=== PATIENT | female | born 1990 | race Caucasian/White ===

== ENCOUNTER 2020-05-04 11:16 | Outpatient (REF) | payer MEDICAID, SELFPAY ==
[2020-05-04 13:00] LABS: MANUAL DIFF FLAG NO
[2020-05-04 13:04] LABS: Basophils Percent Auto 0.3 % (0-2); Eosinophils Absolute Auto 0.3 X10*3/uL (0.0-0.4); Eosinophils Percent Auto 3.2 % (0-4); Hematocrit 48.3 % (37-47); Hemoglobin 15.7 g/dl (12.0-16.0); Imm Gran Abs Auto 0.02 X10*3/uL (0.00-0.03); Imm Gran Pct Auto 0.2 % (0.0-0.4); Lymphocytes Absolute Auto 2.8 X10*3/uL (1.2-4.9); Lymphocytes Percent Auto 30.6 % (20-40); Mean Corpuscular HGB Conc 32.5 g/dl (31.0-35.0); Mean Corpuscular Hemoglobin 27.2 pg (27.0-33.0); Mean Corpuscular Volume 83.7 fL (80-98); Mean Platelet Volume 10.4 fL (9.4-12.3); Monocytes Absolute Auto 0.5 X10*3/uL (0.1-1.2); Monocytes Percent Auto 5.4 % (2-11); Neutrophils Absolute Auto 5.6 X10*3/uL (2.0-8.3); Neutrophils Percent Auto 60.3 % (45-73); Platelet Count 330 X10*3/uL (160-400); Red Blood Count 5.77 X10*6/uL (4.20-5.50); Red Cell Distribution Width 13.1 % (11.0-16.0); White Blood Count 9.3 X10*3/uL (4.8-10.8)
[2020-05-04 13:36] LABS: Alanine Aminotransferase 29 U/L (0-31); Albumin Level 4.6 g/dL (3.5-5.0); Alkaline Phosphatase 73 U/L (39-117); Anion Gap 15 (12-20); Aspartate Amino Transferase 21 U/L (5-31); Bilirubin Total 0.6 mg/dL (0.0-1.0); Blood Urea Nitrogen 10 mg/dL (9-16); Calcium 8.9 mg/dL (8.4-10.2); Carbon Dioxide 26 mmol/L (22-29); Chloride 101 mmol/L (96-108); Cholesterol 177 mg/dL; Estimated Glomerular Filt Rate > 60; Glucose Random 82 mg/dL (60-115); HDL Cholesterol 39 mg/dL; LDL Cholesterol Calculated 120 mg/dl; Potassium 4.6 mmol/l (3.3-5.1); Rheumatoid Factor < 15.0 IU/mL (<15.0); Sodium 137 mmol/L (135-145); Total Protein 7.7 g/dL (6.5-8.0); Triglycerides 94 mg/dL
[2020-05-04 13:46] LABS: Erythrocyte Sedimentation Rate 8 MM/HR (0-20)
[2020-05-04 13:56] LABS: Thyroid Stimulating Hormone 0.78 mIU/mL (0.32-4.0)
[2020-05-06 14:01] LABS: Anti Nuclear Antibody Screen NEGATIVE (NEGATIVE)
== END 2020-05-04 11:17 | disposition home or self-care (01) ==
LOC: HO.LAB 11:16
PROVIDERS: PCP Internal Medicine; Visit Provider Internal Medicine
DX: E78.2 Mixed hyperlipidemia (principal); F31.5 Bipolar disorder, current episode depressed, severe, with psychotic features; F43.12 Post-traumatic stress disorder, chronic; L24.7 Irritant contact dermatitis due to plants, except food
CPT/HCPCS: 36415; 80053; 80061; 84443; 85025; 85652; 86038; 86039; 86431

== ENCOUNTER 2020-06-09 14:21 | Outpatient (REF) | payer MEDICAID, SELFPAY | END 2020-06-09 14:22 | disposition home or self-care (01) | LOC: HO.LAB 14:21 | PROVIDERS: Visit Provider Internal Medicine | DX: Z20.828 Contact with and (suspected) exposure to other viral communicable diseases (principal) | CPT/HCPCS: C9803; U0003 ==

== ENCOUNTER 2020-07-20 16:04 | Outpatient (REF) | payer MEDICAID, SELFPAY | END 2020-07-20 16:05 | disposition home or self-care (01) | LOC: HO.LAB 16:04 | PROVIDERS: Visit Provider Internal Medicine | DX: Z20.822 Contact with and (suspected) exposure to COVID-19 (principal) | CPT/HCPCS: 36415; C9803; U0003 ==

== ENCOUNTER 2020-09-29 22:01 | Emergency (ER) | payer MEDICAID, SELFPAY ==
[2020-09-29 22:09] VITALS: BP 133/68; PULSE 88; RESP 18; TEMP 37.1; O2SAT 99; BMI 27.4
[2020-09-29 23:28] VITALS: BP 121/75; PULSE 78; RESP 16; TEMP 36.6; O2SAT 98
--- NOTE | 2020-09-30 00:21 | ED_ITS ---
HPI - General Adult General Chief complaint: General Medical Stated complaint: weakness Time Seen by Provider: 09/30/20 00:21 Source: patient Mode of arrival: ambulatory Limitations: no limitations History of Present Illness HPI narrative: Patient with chronic pain seen PCP supposed to see [facility] coming here for the pain all over the back although the hands multiple complaints with increased anxiety and stress no fever no chills no joint swelling no rash Related Data Previous Rx's Medication Instructions Recorded cyclobenzaprine 10 mg PO Q8H #20 tab 09/30/20 prednisone 40 mg PO DAILY #10 tab 09/30/20 tramadol 50 mg PO Q6H PRN #20 tab 09/30/20 Allergies Allergy/AdvReac Type Severity Reaction Status Date / Time No Known Allergies Allergy Unverified 03/18/20 17:10 [No Known Allergies*] Review of Systems Review of Systems: Yes all other systems are reviewed and are negative [facility] Past Medical History Medical History Meningitis Social History Social History Advance Directives: No Physical Exam Vital Signs: Vital Signs: Last Vital Signs Temp 98 F 09/29/20 23:28 Pulse 78 09/29/20 23:28 Resp 16 09/29/20 23:28 BP 121/75 09/29/20 23:28 Pulse Ox 98 09/29/20 23:28 Body Mass Index 27.4 Const: General: no acute distress and well developed Orientation/consciousness: patient oriented x3 HENMT: Head: Yes normocephalic and Yes atraumatic Eyes: General: appearance normal, both eyes and all related structures Neck: Neck: Yes normal visual inspection, Yes full ROM and No midline defo rmity Chest: Chest palpation & inspection: normal palpation of entire chest wall Resp: Effort & Inspection: normal respiratory effort Auscultation: clear to auscultation bilaterally Cardio: Rate: regular rate Rhythm: regular rhythm Heart sounds: S1 normal heart sound present and S2 normal heart sound present Peripheral pulses: Peripheral pulses 2+ throughout GI: Inspection: Yes normal to inspection Palpation (GI): Soft to palpation and nontender : General: Yes no CVA tenderness Back/Spine/Pelvis: Other: Diffuse tenderness all over the back specially upper back with multiple trigger point tenderness Back: no CVA tenderness Thoracic/Lumbar Spine: paraspinal muscle tenderness and thoraco-lumbar spasm Skin: General skin exam: no rashes or lesions noted Neuro: General: patient oriented x3, gait normal, no focal motor deficits and CN's II-XI intact bilaterally Extrem: General: Yes normal to inspection, Yes no calf tenderness and No pedal edema Medical Decision Making MDM Narrative Medical decision making narrative: Patient with increased anxiety diffuse upper back pain no synovial thickening of any joint symptoms likely from fibromyalgia with trigger point tenderness. Will discharge patient home on tramadol Flexeril and short course of prednisone advised to follow-up with [facility] Discharge Plan Discharge Clinical Impression: Fibromyalgia Patient Disposition: Home, Self-Care Instructions: Fibromyalgia (ED) Additional Instructions: Relax and rest at home. Take medication as advised for pain and muscle relaxation. Follow with [facility] as planned Prescriptions: New cyclobenzaprine 10 mg tablet 10 mg PO Q8H Qty: 20 RF: 0 prednisone 20 mg tablet 40 mg PO DAILY Qty: 10 RF: 0 tramadol 50 mg tablet 50 mg PO Q6H PRN (Reason: pain) Qty: 20 RF: 0 Stand Alone Forms: Work/School Release Interventions: ED Discharge Assessment Last Done: 09/30/20 01:00 Discharge Date/Time: 09/30/20 01:01
[2020-09-30] MEDS: Cyclobenzaprine HCl 10 MG TABLET PO (00:37)
[2020-09-30] MEDS: traMADoL HCL 50 MG TABLET PO (00:38)
== END 2020-09-30 01:01 | disposition home or self-care (01) ==
PROVIDERS: Emergency Provider Internal Medicine; PCP Internal Medicine
DX: M79.7 Fibromyalgia (principal)
CPT/HCPCS: 99283

== ENCOUNTER 2020-11-05 16:12 | Emergency (ER) | payer MEDICAID, SELFPAY ==
[2020-11-05 16:14] VITALS: BP 108/68; PULSE 104; RESP 14; TEMP 37.3; O2SAT 96; BMI 32.0
--- NOTE | 2020-11-05 17:18 | ED_ITS ---
HPI - General Adult General Chief complaint: Neck Pain/Injury Stated complaint: Sore Throat Time Seen by Provider: 11/05/20 17:11 History of Present Illness HPI narrative: Patient complains of sore throat similar to prior sore throat along with fevers coming and going, it hurts to swallow but she is able to swallow she has no cough no runny nose Related Data Previous Rx's Medication Instructions Recorded cyclobenzaprine 10 mg PO Q8H #20 tab 09/30/20 prednisone 40 mg PO DAILY #10 tab 09/30/20 tramadol 50 mg PO Q6H PRN #20 tab 09/30/20 acetaminophen 1,000 mg PO Q6H PRN #30 tab 11/05/20 ibuprofen 600 mg PO Q6H PRN #20 tab 11/05/20 oxycodone 5 mg PO Q6H PRN #10 tab 11/05/20 penicillin V potassium 500 mg PO TID 10 Days #30 tab 11/05/20 Allergies Allergy/AdvReac Type Severity Reaction Status Date / Time No Known Allergies Allergy Verified 11/05/20 17:10 [No Known Allergies*] Review of Systems Review of Systems: Positive for sore throat and fever Negatives are no headache no dizziness no weakness no fainting no difficulty swallowing but there is pain on swallowing, no shortness of breath no chest pain no abdominal pain no nausea vomiting or diarrhea no rash Yes all other systems are reviewed and are negative [facility] Past Medical History Source: nursing notes reviewed Medical History Meningitis Social History Social History Advance Directives: No Advance Directives Information Provided: No Patient : No Physical Exam Vital Signs: Vital Signs: Last Vital Signs Temp 99.2 F 11/05/20 16:14 Pulse 104 H 11/05/20 16:14 Resp 14 11/05/20 16:14 BP 108/68 11/05/20 16:14 Pulse Ox 96 11/05/20 16:14 Body Mass Index 32.0 General appearance is no acute distress, cooperative and O x3 The ears are clear with normal tympanic membranes and normal canals Eyes no discharge no redness The pharynx shows symmetric we enlarged tonsils with exudate, the pharynx is red, the voice is normal there is no drooling there is no trismus, uvula is midline Mucous membranes are moist Extremities full range of motion x4 Skin no rashes The neck was supple there was some palpable cervical adenopathy The chest is clear to auscultation bilateral with full symmetric breath sounds The heart no murmur Abdomen is soft nontender Course Course Course Narrative: Patient is able to tolerate p.o. fluids and was treated with a 1 time dose of steroid and penicillin was started Discharge Plan Discharge Clinical Impression: Acute streptococcal pharyngitis Patient Disposition: Home, Self-Care Additional Instructions: We are treating for strep throat with penicillin We gave 1 dose of Decadron which is a steroid which sometimes helps reduce inflammation and decrease the pain Drink plenty of fluids, breathing steam sometimes helps relieve throat pain Return any time for any worse condition or any concerns Prescriptions: New penicillin V potassium 500 mg tablet 500 mg PO TID 10 Days Qty: 30 RF: 0 acetaminophen 500 mg tablet 1,000 mg PO Q6H PRN (Reason: fever or pain) Qty: 30 RF: 0 ibuprofen 600 mg tablet 600 mg PO Q6H PRN (Reason: fever or pain) Qty: 20 RF: 0 oxycodone 5 mg tablet 5 mg PO Q6H PRN (Reason: pain) Qty: 10 RF: 0 No Action cyclobenzaprine 10 mg tablet 10 mg PO Q8H Qty: 20 RF: 0 prednisone 20 mg tablet 40 mg PO DAILY Qty: 10 RF: 0 tramadol 50 mg tablet 50 mg PO Q6H PRN (Reason: pain) Qty: 20 RF: 0 Stand Alone Forms: Work/School Release
[2020-11-05] MEDS: Ketorolac Tromethamine 30 MG/ML VIAL IM (17:29)
[2020-11-05] MEDS: dexAMETHasone 2 MG TABLET 10 MG PO (17:30)
[2020-11-05] MEDS: Penicillin V Potassium 250 MG TABLET 500 MG PO (17:30)
[2020-11-05] MEDS: Acetaminophen 325 MG TABLET 975 MG PO (17:30)
== END 2020-11-05 17:48 | disposition home or self-care (01) ==
PROVIDERS: Emergency Provider Emergency Medicine; PCP Internal Medicine
DX: J02.0 Streptococcal pharyngitis (principal); Z79.899 Other long term (current) drug therapy
CPT/HCPCS: 96372; 99284; J1885; J8540

== ENCOUNTER 2020-12-08 20:36 | Emergency (ER) | payer MEDICAID, SELFPAY ==
[2020-12-08 21:36] VITALS: BP 118/62; PULSE 102; RESP 18; TEMP 37.3; O2SAT 98; BMI 32.5
--- NOTE | 2020-12-08 21:47 | ED_ITS ---
HPI - General Adult General Chief complaint: General Medical Stated complaint: sore throat Time Seen by Provider: 12/08/20 21:47 Source: patient Mode of arrival: ambulatory Limitations: no limitations History of Present Illness HPI narrative: sore throat for the past 2 days with myalgias Onset (ago): day(s) Radiation: non-radiation Severity: mild Quality: sharp Pain Consistency: constant Relieving factors: none Exacerbating factors: none Associated symptoms: other (myalgias) Related Data Previous Rx's Medication Instructions Recorded cyclobenzaprine 10 mg PO Q8H #20 tab 09/30/20 prednisone 40 mg PO DAILY #10 tab 09/30/20 tramadol 50 mg PO Q6H PRN #20 tab 09/30/20 acetaminophen 1,000 mg PO Q6H PRN #30 tab 11/05/20 ibuprofen 600 mg PO Q6H PRN #20 tab 11/05/20 oxycodone 5 mg PO Q6H PRN #10 tab 11/05/20 penicillin V potassium 500 mg PO TID 10 Days #30 tab 11/05/20 amoxicillin-pot clavulanate 1 tab PO BID #20 tab 12/08/20 [Augmentin] Allergies Allergy/AdvReac Type Severity Reaction Status Date / Time No Known Allergies Allergy Verified 11/05/20 17:10 [No Known Allergies*] Review of Systems Constitutional: Constitutional: Reports no additional constitutional compl aints Eyes: Eyes: Reports no additional eye complaints ENT: Denies dizziness Cardiovascular: Cardiovascular: Reports no additional cardiovascular complaints Respiratory: Respiratory: Reports as per HPI Gastrointestinal: Gastrointestinal: Reports no additional gastrointestinal complaints Genitourinary: Genitourinary: Reports no additional female genitourinary complaints Musculoskeletal: Musculoskeletal: Reports no additional musculoskeletal complaints Integumentary/Breasts: Skin/Breast: Denies rash Neurologic: Reports system reviewed and no additional complaints, except as documented, Denies dizziness and Denies Sensory deficit (Neuro) Psychiatric: Psychiatric: Denies anxiety [facility] Past Medical History Medical History Meningitis Social History Social History Advance Directives: No Advance Directives Information Provided: No Patient : No Physical Exam Vital Signs: Vital Signs: Last Vital Signs Temp 99.1 F 12/08/20 21:36 Pulse 102 H 12/08/20 21:36 Resp 18 12/08/20 21:36 BP 118/62 12/08/20 21:36 Pulse Ox 98 12/08/20 21:36 Body Mass Index 32.5 Const: Nutritional Appearance: obese Orientation/consciousness: oriented to person and patient oriented x3 Limitations: no limitations HENMT: Other: elarged tonsils with severe exudate and cervical lymphadenopathy Head: Yes normal to inspection Ears: external ears normal and TM's normal bilaterally General nose exam: Normal external nose present Throat: Yes posterior oropharynx normal Eyes: General: appearance normal, both eyes and all related structures Neck: Other: supple Neck: Yes normal visual inspection Chest: Chest palpation & inspection: normal inspection of the chest Resp: Auscultation: clear to auscultation bilaterally Cardio: Jugular venous distension: no JVD Rate: regular rate Rhythm: regular rhythm Heart sounds: S1 normal heart sound present and S2 normal he art sound present GI: Inspection: Yes normal to inspection Palpation (GI): Soft to palpation, nontender and No hepatosplenomegaly present Auscultation: normal bowel sounds : General: Yes no CVA tenderness Back/Spine/Pelvis: Back: no CVA tenderness Skin: General skin exam: no rashes or lesions noted Neuro: General: oriented to person and patient oriented x3 Cranial nerves: Yes CN's II-XII intact bilaterally Motor exam (neuro): 5/5 motor strength present throughout Sensory Exam: No Sensory deficit (Neuro) Extrem: General: Yes normal to inspection Psych: Appearance: grossly normal Course Course Course Narrative: Paient with strep throat will give augmentin and dc home Medical Decision Making Lab Data Labs: Lab Results 12/08/20 Range/Units 21:45 S. pyogenes GrpA RAOUL Positive A (Negative) Discharge Plan Discharge Clinical Impression: Strep pharyngitis Patient Disposition: Home, Self-Care Instructions: Strep Throat (ED) Prescriptions: New amoxicillin-pot clavulanate [Augmentin] 875-125 mg tablet 1 tab PO BID Qty: 20 RF: 0 No Action cyclobenzaprine 10 mg tablet 10 mg PO Q8H Qty: 20 RF: 0 prednisone 20 mg tablet 40 mg PO DAILY Qty: 10 RF: 0 tramadol 50 mg tablet 50 mg PO Q6H PRN (Reason: pain) Qty: 20 RF: 0 penicillin V potassium 500 mg tablet 500 mg PO TID 10 Days Qty: 30 RF: 0 acetaminophen 500 mg tablet 1,000 mg PO Q6H PRN (Reason: fever or pain) Qty: 30 RF: 0 ibuprofen 600 mg tablet 600 mg PO Q6H PRN (Reason: fever or pain) Qty: 20 RF: 0 oxycodone 5 mg tablet 5 mg PO Q6H PRN (Reason: pain) Qty: 10 RF: 0 Referrals: Shalonda Willingham MD [Primary Care Provider] - 10 days
[2020-12-08 22:07] LABS: IDNOW Serial# 9DD0AD1C; Strep A Nucleic Acid Positive (Negative)
[2020-12-08] MEDS: Amoxicillin/Potassium Clav 875 MG TABLET PO (22:20)
== END 2020-12-08 22:44 | disposition home or self-care (01) ==
PROVIDERS: Emergency Provider Emergency Medicine; PCP Internal Medicine
DX: J02.0 Streptococcal pharyngitis (principal)
CPT/HCPCS: 36415; 87651; 96372; 99284; J1100

== ENCOUNTER 2021-03-10 05:01 | Emergency (ER) | payer MEDICAID, SELFPAY ==
[2021-03-10 05:45] LABS: IDNOW Serial# 9DD0AD1C
[2021-03-10 05:46] LABS: COVID-19 Test Positive (Negative)
[2021-03-10 05:51] VITALS: BP 125/54; PULSE 120; RESP 16; TEMP 39.1; O2SAT 97; BMI 33.5
--- NOTE | 2021-03-10 06:33 | ED.FEVER ---
HPI - Fever General Chief Complaint: Fever Stated Complaint: Fever/body aches Time Seen by Provider: 03/10/21 05:59 Source: patient Mode of arrival: ambulatory History of Present Illness HPI Narrative: 30-year-old female without significant past medical history presents with progressively worsening fever, headaches, body aches for 2 days and states that she has not had her COVID-19 vaccine. She thinks that she may have become sick while at work. She denies any shortness of breath/chest pain/palpitations. Related Data Previous Rx's Medication Instructions Recorded cyclobenzaprine 10 mg tablet 10 mg PO Q8H #20 tab 09/30/20 prednisone 20 mg tablet 40 mg PO DAILY #10 tab 09/30/20 tramadol 50 mg tablet 50 mg PO Q6H PRN #20 tab 09/30/20 acetaminophen 500 mg tablet 1,000 mg PO Q6H PRN #30 tab 11/05/20 ibuprofen 600 mg tablet 600 mg PO Q6H PRN #20 tab 11/05/20 oxycodone 5 mg tablet 5 mg PO Q6H PRN #10 tab 11/05/20 penicillin V potassium 500 mg 500 mg PO TID 10 Days #30 tab 11/05/20 tablet amoxicillin 875 mg-potassium 1 tab PO BID #20 tab 12/08/20 clavulanate 125 mg tablet (Augmentin) Allergies Allergy/AdvReac Type Severity Reaction Status Date / Time No Known Allergies Allergy Verified 11/05/20 17:10 [No Known Allergies*] Review of Systems Review of Systems: Pertinent positives and negatives as stated in HPI 10 point review of systems is otherwise negative. [facility] Past Medical History Source: nursing notes reviewed Medical History Meningitis Social History Social History Advance Directives: No Advance Directives Information Provided: No Patient : No Physical Exam Vital Signs: Vital Signs: Last Vital Signs Temp 102.4 F H 03/10/21 05:51 Pulse 120 H 03/10/21 05:51 Resp 16 03/10/21 05:51 BP 125/54 L 03/10/21 05:51 Pulse Ox 97 03/10/21 05:51 Body Mass Index 33.5 VITAL SIGNS: Reviewed. GENERAL: Well developed, well nourished, in no acute distress. HEAD: Normocephalic/atraumatic EYES: PERRLA, EOMI OROPHARYNX: no oral lesions noted, posterior pharynx clear LUNGS: Normal breath sounds. SpO2<97> CARDIOVASCULAR: Regular rate and rhythm without noted murmurs ABDOMEN: Soft, non-tender, non-distended with bowel sounds SKIN: Inspection of the skin reveals no rashes NEUROLOGIC: Alert and oriented x 4. Course Course Course Narrative: 30-year-old female with history and clinical presentation consistent with likely viral infection and on review of all investigations patient is noted to be COVID-19 positive. She was informed of her results and discharged home in stable condition. She has no complaints of shortness of breath, was not noted to be hypoxic here in the emergency room, and temperature has improved after receiving combination antipyretics. MDM - Fever Lab Data Labs: Lab Results 03/10/21 Range/Units 05:31 COVID-19 (DARRELL) Positive A (Negative) COVID-19 Clin Com See Note Discharge Plan Discharge Clinical Impression: Lab test positive for detection of COVID-19 virus, Viral syndrome Patient Disposition: Home, Self-Care Instructions: COVID-19 (Coronavirus Disease 2019) (ED), Viral Syndrome (ED) Additional Instructions: 1. Tylenol 1000 mg, por v?a oral, cada 6 horas seg?n sea necesario para el dolor de ilia, temperaturas superiores a 100,4?C, anna corporales. No exceda los 4000 mg en 24 horas. 2. Ibuprofeno 400 mg, por v?a oral con leche o comida, cada 6 horas seg?n sea necesario para dolor de ilia, anna corporales, temperaturas superiores a 100,4?C. 3. Incrementar la hidrataci?n de los fluidos especialmente con agua. 4. Debe obedecer todas las pautas estatales y federales con respecto a la positividad de COVID-19. 5. Debe ponerse en cuarentena melia 14 d?as. 6. Valentín un seguimiento con myles proveedor de atenci?n primaria en los pr?ximos 1-2 d?as a jolie?s de janet rommel de telemedicina. Regrese a la cayetano de emergencias si wandy s?ntomas empeoran de manera aguda. Prescriptions: No Action cyclobenzaprine 10 mg tablet 10 mg PO Q8H Qty: 20 RF: 0 prednisone 20 mg tablet 40 mg PO DAILY Qty: 10 RF: 0 tramadol 50 mg tablet 50 mg PO Q6H PRN (Reason: pain) Qty: 20 RF: 0 penicillin V potassium 500 mg tablet 500 mg PO TID 10 Days Qty: 30 RF: 0 acetaminophen 500 mg tablet 1,000 mg PO Q6H PRN (Reason: fever or pain) Qty: 30 RF: 0 ibuprofen 600 mg tablet 600 mg PO Q6H PRN (Reason: fever or pain) Qty: 20 RF: 0 oxycodone 5 mg tablet 5 mg PO Q6H PRN (Reason: pain) Qty: 10 RF: 0 amoxicillin-pot clavulanate [Augmentin] 875-125 mg tablet 1 tab PO BID Qty: 20 RF: 0 Referrals: Shalonda Willingham MD [Primary Care Provider] - 2 days (Patient diagnosed with COVID-19 on 03/10/2021) Print Language: [place]
[2021-03-10] MEDS: Acetaminophen 325 MG TABLET 975 MG PO (06:40)
[2021-03-10] MEDS: Ibuprofen 400 MG TABLET PO (06:40)
== END 2021-03-10 07:06 | disposition home or self-care (01) ==
PROVIDERS: Emergency Provider Student in an Organized Health Care Education/Training Program; PCP Internal Medicine
DX: U07.1 COVID-19 (principal); B34.9 Viral infection, unspecified; R50.9 Fever, unspecified
CPT/HCPCS: 36415; 87635; 99283

== ENCOUNTER 2021-06-22 16:53 | Emergency (ER) | payer MEDICAID, SELFPAY ==
--- NOTE | ~2021-06-22 | XR_ITS ---
EXAMINATION: XR CHEST CLINICAL INFORMATION: Upper respiratory infection COMPARISON: Chest x-ray on 07/24/2019 TECHNIQUE: Frontal view of the chest was obtained. FINDINGS: No significant abnormality is noted involving the heart, lungs, mediastinum, bony thorax or soft tissues. XR/XR chest 1V IMPRESSION: Unremarkable examination.
--- NOTE | ~2021-06-22 | CT_ITS ---
EXAMINATION: CT HEAD WITHOUT CONTRAST CLINICAL INFORMATION: Headache. COMPARISON: CT head dated from 02/27/2017. TECHNIQUE: Contiguous axial imaging was performed from the skull base to vertex without intravenous administration of contrast. This CT examination was performed using dose optimization techniques as appropriate, variously including the following: *Automated exposure control *Adjustment of mA and/or kV according to patient size (this includes techniques or standardized protocols for targeted exams where dose is matched to indication/reason for exam; i.e. extremities or head) *Use of iterative reconstruction technique DLP: 684 mGy-cm FINDINGS: There is no evidence of acute intracranial hemorrhage or edematous territorial infarction. There is no abnormal attenuation within the brain parenchyma. Marks-white matter differentiation is preserved. The ventricles are normal in size and configuration. No evidence for obstructive hydrocephalus. No abnormal mass effect or midline shift. No extra-axial fluid collections. No acute soft tissue or osseous abnormalities. Chronic left orbital floor fracture with fixation place and screws. There is complete opacification of the left maxillary sinus with hyperattenuating content. There is rightward deviation of the nasal septum and hypoplasia of the frontal sinuses. The right frontal sinus is opacified. The mastoids are clear. CT/CT head/brain wo con IMPRESSION: 1. No evidence of acute intracranial hemorrhage or edematous territorial infarction. 2. Paranasal sinus disease. Correlate clinically for the presence of acute sinusitis.
--- NOTE | ~2021-06-22 | CT_ITS ---
EXAMINATION: CT ABDOMEN AND PELVIS WITHOUT CONTRAST CLINICAL INFORMATION: Hematuria and flank pain COMPARISON: Abdominal ultrasound 01/10/2018, CT abdomen pelvis 11/18/2015 TECHNIQUE: Multidetector volumetric imaging was performed from the superior aspect of the liver through the pubic symphysis. Sagittal and coronal reformatted images were obtained on the technologist's workstation. This CT examination was performed using dose optimization techniques as appropriate, variously including the following: *Automated exposure control *Adjustment of mA and/or kV according to patient size (this includes techniques or standardized protocols for targeted exams where dose is matched to indication/reason for exam; i.e. extremities or head) *Use of iterative reconstruction technique DLP: 592 mGy-cm FINDINGS: LUNG BASES: The visualized lung bases are unremarkable. LIVER, GALLBLADDER, AND BILIARY TREE: The liver is normal in size and shape but demonstrates decreased attenuation consistent with hepatic steatosis. Some focal fatty sparing is seen adjacent to the gallbladder. No focal hepatic lesion or biliary ductal dilatation is present. The gallbladder is unremarkable with no evidence of radiopaque gallstones, gallbladder wall thickening, or obvious pericholecystic inflammatory changes. PANCREAS: Unremarkable. SPLEEN: Unremarkable. ADRENAL GLANDS: Unremarkable. KIDNEYS AND URETERS: The kidneys are normal in size, shape, and attenuation. No hydronephrosis, hydroureter, or calculi seen. No perinephric stranding. BLADDER: Unremarkable. GASTROINTESTINAL TRACT: The small and large bowel are unremarkable. The appendix is unremarkable. ABDOMINAL WALL: No significant hernia is appreciated. Air in the left mid abdominal wall probably from injection. Please correlate clinically. LYMPH NODES: Normal. VASCULAR: Unremarkable. PELVIC VISCERA: The right ovary is prominent measuring 4.0 x 2.6 x 3.2 cm and has some peripheral calcifications. At the time of the patient's prior ultrasound, the ovary was about the same size and demonstrated string of pearls appearance with multiple peripheral cysts. Appearances were felt to be compatible with polycystic ovary syndrome. The calcification probably represents calcification in the wall of some of the cysts. The left ovary measures 3.5 x 3.0 x 4.1 cm. An anteverted uterus is present. No free pelvic fluid is seen. OSSEOUS STRUCTURES: Unremarkable. CT/CT abdomen pelvis wo con IMPRESSION: 1. A cause for the patient's hematuria and flank pain is not been found. No renal calculi are seen. 2. Hepatic steatosis 3. Bilateral prominent ovaries better seen with ultrasound with some probable calcification in peripheral cysts. Fleischner guidelines were followed.
[2021-06-22 18:09] VITALS: BP 113/76; PULSE 95; RESP 18; TEMP 37.2; O2SAT 99; BMI 31.5
--- NOTE | 2021-06-22 18:45 | ED.HA ---
HPI - Headache General Chief Complaint: Headache Stated Complaint: migraine Time Seen by Provider: 06/22/21 18:52 Source: patient Mode of arrival: ambulatory Limitations: language barrier History of Present Illness HPI Narrative: 31-year-old female presents with 1 day of severe headache, body aches, and congestion. States that she feels like she had meningitis twice in the past and feels similar to that. MD elicited complaint: headache and other (States that she feels like she has meningitis) Pertinent past history: other (Meningitis) Onset (ago): day(s) (1) Onset description: suddenly Location: generalized Severity: severe Pain scale (0-10): 10 Quality & Timing: aching, throbbing, pressure and similar to previous headaches Exacerbating factors: exertion, movement of head/neck, sitting/standing and light Relieving factors: nothing Context: occurred at rest Associated symptoms: neck stiffness and photophobia Treatments prior to arrival: none Related Data Previous Rx's Medication Instructions Recorded cyclobenzaprine 10 mg tablet 10 mg PO Q8H #20 tab 09/30/20 prednisone 20 mg tablet 40 mg PO DAILY #10 tab 09/30/20 tramadol 50 mg tablet 50 mg PO Q6H PRN #20 tab 09/30/20 acetaminophen 500 mg tablet 1,000 mg PO Q6H PRN #30 tab 11/05/20 ibuprofen 600 mg tablet 600 mg PO Q6H PRN #20 tab 11/05/20 oxycodone 5 mg tablet 5 mg PO Q6H PRN #10 tab 11/05/20 penicillin V potassium 500 mg 500 mg PO TID 10 Days #30 tab 11/05/20 tablet amoxicillin 875 mg-potassium 1 tab PO BID #20 tab 12/08/20 clavulanate 125 mg tablet (Augmentin) amoxicillin 875 mg-potassium 1 tab PO Q12H 7 Days #14 tab 06/22/21 clavulanate 125 mg tablet (Augmentin) fluconazole 150 mg tablet 150 mg PO Q3D #2 tab 06/22/21 (Diflucan) ibuprofen 600 mg tablet 600 mg PO Q6H PRN #30 tab 06/22/21 metronidazole 500 mg tablet 500 mg PO Q12H 7 Days #14 tab 06/22/21 valacyclovir 1 gram tablet 1,000 mg PO Q8H 10 Days #30 tab 06/22/21 (Valtrex) Allergies Allergy/AdvReac Type Severity Reaction Status Date / Time No Known Allergies Allergy Verified 06/22/21 18:09 [No Known Allergies*] Review of Systems Review of Systems: Constitutional: Positive body aches, No Fever, No Chills ENT/Mouth: Positive congestion, No Ear Pain, No Hoarseness, No sore throat Eyes: No Eye Pain, No Swelling, No Redness, No Foreign Body Cardiovascular: No Chest Pain, No SOB Respiratory: No Cough, No Dyspnea Gastrointestinal: No Nausea, No Vomiting, No Diarrhea, No abdominal Pain Genitourinary: No Dysuria, No Hematuria Musculoskeletal: No joint pain, positive Myalgias, No Joint Swelling Skin: No Skin lacerations, No rash Neuro: No Weakness, No Numbness, No Paresthesias, No Loss of Consciousness, No Dizziness, positive Headache Psych: No Anxiety/Panic, No Depression Heme/Lymph: no easy bruising, no Lymphadenopathy Endocrine: No Polyuria, No Polydipsia Yes all other systems are reviewed and are negative PMFSH Past Medical History Attestation statement: The following information was validated with the patient. Source: old records reviewed Medical History Headache Meningitis Social History Social History Advance Directives: No Advance Directives Information Provided: Yes Patient : No Physical Exam Vital Signs: Vital Signs: Last Vital Signs Temp 98.4 F 06/22/21 21:28 Pulse 78 06/22/21 21:28 Resp 18 06/22/21 21:28 BP 116/63 06/22/21 21:28 Pulse Ox 98 06/22/21 21:28 BMI result Body Mass Index 31.5 Appearance: Alert. Oriented X3. No acute distress. Head: Normal external exam. Normocephalic. Atraumatic. No Fisher signs noted. No raccoon eyes noted Eyes: PERRLA. EOMI. Conjunctiva and sclera normal. Eyelids normal. ENT: TM's Normal. Pharynx normal. Uvula midline. Moist mucous membranes. No trismus noted. No drooling noted. No muffled voice noted. Neck: Normal inspection. Neck supple. No adenopathy. No meningeal signs. No neck mass noted. CVS: Normal heart rate and rhythm. Heart sound normal. No murmurs noted. Pulses equal to all extremities. Respiratory: No respiratory distress. Painless inspiration. Breath sounds normal. No wheezes/rales/rhonchi noted. Chest nontender. No accessory muscle usage noted or decreased air movement noted. Abdomen: Soft and nontender. Bowel sounds normal in all 4 quadrants. No distention noted. No organomegaly noted. No visible injury noted. Back: No CVA tenderness. Full range of motion noted. Skin: Skin warm and dry. Normal skin color. Normal skin turgor. No rashes/lesions/lacerations noted. Extremities: No lower extremity edema. Extremities exhibit normal range of motion. Extremities nontender. Neuro: cranial nerves 2-12 intact, no focal neural deficits, strength 5/5 to all extremities, No motor deficit. No sensory deficit. Patellar Reflexes normal. Course Course Course Narrative: 31-year-old female presents with 10/10 headache with body aches. Started for 1 day. Stated that she feels like she did when she had meningitis. Patient is afebrile, gait is well balanced well coordinated. No nuchal rigidity. Moves all extremities against resistance. Highly unlikely that this is meningitis at this time. Will order lab values, and urinalysis with COVID testing. Patient has not had a CT scan, will order CT scan of head. Vital signs are stable and within normal limits, afebrile, even unlabored respirations. 8:00 p.m. white count 15. Urinalysis pending. 8:[address] negative. ESR 7, patient continues to be afebrile, vital signs within normal limits. 9:[address] scan of abdomen and pelvis is negative for acute findings requiring emergent intervention. Does show possible polycystic ovarian syndrome will have patient follow-up with gynecology. 10:30 p.m. I did discuss discharge with patient, patient is dissatisfied and feels that her symptoms are meningitis. Disappointed with the diagnosis of sinusitis, bacterial vaginosis, and candidiasis. 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 Multiple discussions with Dr. Sargent, and he agrees with this plan. 10:50 p.m. detailed description regarding plan for discharge home not received well by the patient. Patient is requesting a lumbar puncture because she feels that she has meningitis. I did discuss this case with 2 ED attendings, both of which agreed with my initial assessment and feel that a lumbar puncture at this time would be more detrimental than beneficial. I will refer patient to Neurology for headaches and past history of herpetic meningitis. MDM - Headache Differential Diagnosis Differential diagnosis: Likely migraine, tension headache, subarachnoid hemorrhage, headache, meningitis and sinusitis Medical Records Attestation: I reviewed the patient's medical records. Lab Data Attestation: I reviewed the patient's lab results. Result diagrams: 06/22/21 19:27 06/22/21 19:27 Labs: Lab Results 06/22/21 06/22/21 06/22/21 Range/Units 19:27 19:27 19:27 WBC 15.1 H (4.8-10.8) X10*3/uL RBC 6.00 H (4.20-5.50) X10*6/uL Hgb 16.9 H (12.0-16.0) g/dl Hct 51.9 H (37.0-47.0) % MCV 86.5 (80.0-98.0) fL MCH 28.2 (27.0-33.0) pg MCHC 32.6 (31.0-35.0) g/dl RDW 13.1 (11.0-16.0) % Plt Count 281 (160-400) X10*3/uL MPV 10.9 (9.4-12.3) fL Immature Gran % (Auto) 0.3 (0.0-0.4) % Neut % (Auto) 80.6 H (45-73) % Lymph % (Auto) 13.8 L (20-40) % [place] % (Auto) 4.3 (2-11) % Eos % (Auto) 0.7 (0-4) % Baso % (Auto) 0.3 (0-2) % Lymph # (Auto) 2.1 (1.2-4.9) X10*3/uL [place] # (Auto) 0.7 (0.1-1.2) X10*3/uL Eos # (Auto) 0.1 (0.0-0.4) X10*3/uL Baso # (Auto) 0.1 (0.0-0.2) X10*3/uL Abs Immat Gran (auto) 0.05 H (0.00-0.03) X10*3/uL Absolute Neuts (auto) 12.2 H (2.0-8.3) x10*3/uL Absolute Nucleated RBC 0.000 (0.0-0.012) X10*3/uL Nucleated RBC % (auto) 0.0 (0.0-0.2) /100WBC ESR 7 (0-20) MM/HR Sodium 141 (135-145) mmol/L Potassium 4.3 (3.3-5.1) mmol/L Chloride 104 (96-108) mmol/L Carbon Dioxide 28 (22-29) mmol/L Anion Gap 13 (12-20) BUN 14 (9-16) mg/dL Creatinine 0.80 (0.5-1.4) mg/dL Estim Creat Clear Calc 100.6 Estimated GFR > 60 Random Glucose 87 (60-115) mg/dL Calcium 10.2 D (8.4-10.2) mg/dL Urine Color Urine Appearance Urine pH (5.0-8.0) Ur Specific [place] (1.005-1.025) Urine Protein (NEG-TRACE) MG/DL Urine Glucose (UA) (NEG) MG/DL Urine Ketones (NEG) MG/DL Urine Blood (NEG) Urine Nitrite (NEG) Ur Leukocyte Esterase (NEG) Urine RBC (0) /HPF Urine WBC (0-4) /HPF Ur Squamous Epith Cells /LPF Urine Bacteria /LPF Urine Test (NEGATIVE) Influenza Type A (PCR) (Negative) Influenza Type B (PCR) (Negative) RSV RNA Qual (PCR) (Negative) SARS-CoV-2 RNA (RT-PCR) (Negative) 06/22/21 06/22/21 06/22/21 Range/Units 19:27 20:27 20:27 WBC (4.8-10.8) X10*3/uL RBC (4.20-5.50) X10*6/uL Hgb (12.0-16.0) g/dl Hct (37.0-47.0) % MCV (80.0-98.0) fL MCH (27.0-33.0) pg MCHC (31.0-35.0) g/dl RDW (11.0-16.0) % Plt Count (160-400) X10*3/uL MPV (9.4-12.3) fL Immature Gran % (Auto) (0.0-0.4) % Neut % (Auto) (45-73) % Lymph % (Auto) (20-40) % [place] % (Auto) (2-11) % Eos % (Auto) (0-4) % Baso % (Auto) (0-2) % Lymph # (Auto) (1.2-4.9) X10*3/uL [place] # (Auto) (0.1-1.2) X10*3/uL Eos # (Auto) (0.0-0.4) X10*3/uL Baso # (Auto) (0.0-0.2) X10*3/uL Abs Immat Gran (auto) (0.00-0.03) X10*3/uL Absolute Neuts (auto) (2.0-8.3) x10*3/uL Absolute Nucleated RBC (0.0-0.012) X10*3/uL Nucleated RBC % (auto) (0.0-0.2) /100WBC ESR (0-20) MM/HR Sodium (135-145) mmol/L Potassium (3.3-5.1) mmol/L Chloride (96-108) mmol/L Carbon Dioxide (22-29) mmol/L Anion Gap (12-20) BUN (9-16) mg/dL Creatinine (0.5-1.4) mg/dL Estim Creat Clear Calc Estimated GFR Random Glucose (60-115) mg/dL Calcium (8.4-10.2) mg/dL Urine Color STRAW Urine Appearance CLEAR Urine pH 7.0 (5.0-8.0) Ur Specific [place] 1.020 (1.005-1.025) Urine Protein NEG (NEG-TRACE) MG/DL Urine Glucose (UA) NEG (NEG) MG/DL Urine Ketones NEG (NEG) MG/DL Urine Blood 2+ H (NEG) Urine Nitrite NEG (NEG) Ur Leukocyte Esterase NEG (NEG) Urine RBC 10-14 H (0) /HPF Urine WBC 0-2 (0-4) /HPF Ur Squamous Epith Cells TRACE /LPF Urine Bacteria NONE /LPF Urine Test NEGATIVE (NEGATIVE) Influenza Type A (PCR) NEGATIVE (Negative) Influenza Type B (PCR) NEGATIVE (Negative) RSV RNA Qual (PCR) NEGATIVE (Negative) SARS-CoV-2 RNA (RT-PCR) NEGATIVE (Negative) Imaging Data CT head: Attestation: I personally reviewed and interpreted this imaging study as follows: Radiologist's impression: FINDINGS: There is no evidence of acute intracranial hemorrhage or edematous territorial infarction. There is no abnormal attenuation within the brain parenchyma. Marks-white matter differentiation is preserved. The ventricles are normal in size and configuration. No evidence for obstructive hydrocephalus. No abnormal mass effect or midline shift. No extra-axial fluid collections. No acute soft tissue or osseous abnormalities. Chronic left orbital floor fracture with fixation place and screws. There is complete opacification of the left maxillary sinus with hyperattenuating content. There is rightward deviation of the nasal septum and hypoplasia of the frontal sinuses. The right frontal sinus is opacified. The mastoids are clear. CT/CT head/brain wo con IMPRESSION: 1. No evidence of acute intracranial hemorrhage or edematous territorial infarction. 2. Paranasal sinus disease. Correlate clinically for the presence of acute sinusitis. Chest x-ray: Attestation: I personally reviewed and interpreted this imaging study as follows: Radiologist's impression: EXAMINATION: XR CHEST CLINICAL INFORMATION: Upper respiratory infection COMPARISON: Chest x-ray on 07/24/2019 TECHNIQUE: Frontal view of the chest was obtained. FINDINGS: No significant abnormality is noted involving the heart, lungs, mediastinum, bony thorax or soft tissues. XR/XR chest 1V IMPRESSION: Unremarkable examination. CT abdomen pelvis: Attestation: I personally reviewed and interpreted this imaging study as follows: Radiologist's impression: FINDINGS: LUNG BASES: The visualized lung bases are unremarkable.? LIVER, GALLBLADDER, AND BILIARY TREE: The liver is normal in size and shape but demonstrates decreased attenuation consistent with hepatic steatosis. Some focal fatty sparing is seen adjacent to the gallbladder. No focal hepatic lesion or biliary ductal dilatation is present. The gallbladder is unremarkable with no evidence of radiopaque gallstones, gallbladder wall thickening, or obvious pericholecystic inflammatory changes.? PANCREAS: Unremarkable.? SPLEEN: Unremarkable.? ADRENAL GLANDS: Unremarkable.? KIDNEYS AND URETERS: The kidneys are normal in size, shape, and attenuation. No hydronephrosis, hydroureter, or calculi seen. No perinephric stranding. ? BLADDER: Unremarkable.? GASTROINTESTINAL TRACT: The small and large bowel are unremarkable. The appendix is unremarkable.? ABDOMINAL WALL: No significant hernia is appreciated. Air in the left mid abdominal wall probably from injection. Please correlate clinically. LYMPH NODES: Normal. VASCULAR: Unremarkable. PELVIC VISCERA: The right ovary is prominent measuring 4.0 x 2.6 x 3.2 cm and has some peripheral calcifications. At the time of the patient's prior ultrasound, the ovary was about the same size and demonstrated string of pearls appearance with multiple peripheral cysts. Appearances were felt to be compatible with polycystic ovary syndrome. The calcification probably represents calcification in the wall of some of the cysts. The left ovary measures 3.5 x 3.0 x 4.1 cm. An anteverted uterus is present. No free pelvic fluid is seen. OSSEOUS STRUCTURES: Unremarkable.? CT/CT abdomen pelvis wo con IMPRESSION: 1.? A cause for the patient's hematuria and flank pain is not been found. No renal calculi are seen. 2.? Hepatic steatosis 3.? Bilateral prominent ovaries better seen with ultrasound with some probable calcification in peripheral cysts.? ? Fleischner guidelines were followed. Critical Care Time Critical Care Time Critical Care Time: Yes Total Critical Care Time: 45 Attestation: I have personally provided critical care time exclusive of time spent on separately billable procedures. Time includes review of laboratory data, radiology results, discussion with consultants, and monitoring for potential decompensation. Interventions were performed as documented. Discharge Plan Discharge Clinical Impression: Headache, Sinusitis, Bacterial vaginosis, Candidiasis, Hx of herpes zoster with meningitis Patient Disposition: Home, Self-Care Instructions: Bacterial Vaginosis (ED), Sinusitis (ED), Yeast Infection (ED), Acute Headache (ED), Vaginal Discharge (ED) Additional Instructions: Se le evalu? por s?ntomas de las v?as respiratorias superiores, dolor de ilia intenso, anna corporales y flujo vaginal. La tomograf?a computarizada de la ilia indica sinusitis. No se cruz observado otras anomal?as en el cerebro. Los valores de laboratorio muestran un recuento de leucocitos levemente elevado a los 15, todos los dem?s valores de laboratorio est?n dentro de los l?mites normales. La tomograf?a computarizada del abdomen y la pelvis no indica oumar?n hallazgo anormal con la excepci?n de agrandamiento de los ovarios compatible con el s?ndrome de ovario poliqu?stico. Valentín un seguimiento con sales engineer account manager. Discut? en detalle con usted los signos y s?ntomas que indican meningitis. En rahul momento, no creemos que la meningitis sea un diagn?stico adecuado para usted. Valentín un seguimiento con Neurolog?a. Para la sinusitis le hemos recetado Augmentin dos veces al d?a melia los pr?ximos 7 d?as. [place] rahul medicamento seg?n las indicaciones. Para la vaginosis bacteriana le hemos recetado Flagyl 500 mg dos veces al d?a melia los pr?ximos 7 d?as. No mily alcohol con rahul medicamento. Tendr? efectos secundarios graves. Para la candidiasis vaginal le hemos recetado Diflucan. [place] a [place] rahul medicamento en 5 d?as. [place] la segunda tableta cuando haya completado todos los antibi?ticos. Para el manejo del dolor, tome Tylenol 650 mg cada 6 horas seg?n sea necesario. Puede alternar con Motrin 600 mg cada 6 horas seg?n sea necesario. Considere hacer un seguimiento con Neurolog?a. He hecho janet derivaci?n al Dr. Wu. Tiene antecedentes de meningitis herp?chris. [place] 1000 mg de valaciclovir 3 veces al d?a melia 10 d?as. Eddie por elegir rahul departamento de emergencias para myles evaluaci?n. Valentín un seguimiento con myles m?dico de atenci?n primaria seg?n sea necesario. Regrese al departamento de emergencias por cualquier s?ntoma nuevo, preocupante o que empeore. You were evaluated for upper respiratory symptoms, severe headache, body aches, and vaginal discharge. CT scan of the head indicates sinusitis. There are no other abnormalities noted to the brain. Your lab values show a mildly elevated white count at 15, all other lab values are within normal limits. CT scan of the abdomen and pelvis do not indicate any abnormal findings with the exception of enlarged ovaries consistent with polycystic ovarian syndrome. Please follow-up with sales engineer account manager. I did discuss in detail with you signs and symptoms indicating meningitis. At this time we do not feel that meningitis is a proper diagnosis for you. Please follow-up with Neurology. For sinusitis we have prescribed Augmentin twice a day for the next 7 days. Please take this medication as directed. For bacterial vaginosis we have prescribed Flagyl 500 mg twice a day for the next 7 days. Do not drink alcohol with this medication. You will have severe side effects. For vaginal yeast infection we have prescribed Diflucan. Please start this medication in 5 days. Take the 2nd tablet when have completed all antibiotics. For pain management please take Tylenol 650 mg every 6 hours as needed. You may alternate with Motrin 600 mg every 6 hours as needed. Please consider following up with Neurology. I have made a referral to Dr. Wu. You do have a history of herpetic meningitis. Please take valacyclovir 1000 mg 3 times a day for 10 days. Thank you for choosing this emergency department for evaluation. Please follow-up with primary care physician as needed. Return to the emergency department for any new, concerning, or worsening symptoms. Prescriptions: New amoxicillin-pot clavulanate [Augmentin] 875-125 mg tablet 1 tab PO Q12H 7 Days Qty: 14 RF: 0 metronidazole 500 mg tablet 500 mg PO Q12H 7 Days Qty: 14 RF: 0 fluconazole [Diflucan] 150 mg tablet 150 mg PO Q3D Qty: 2 RF: 0 ibuprofen 600 mg tablet 600 mg PO Q6H PRN (Reason: pain) Qty: 30 RF: 0 valacyclovir [Valtrex] 1 gram tablet 1,000 mg PO Q8H 10 Days Qty: 30 RF: 0 No Action cyclobenzaprine 10 mg tablet 10 mg PO Q8H Qty: 20 RF: 0 prednisone 20 mg tablet 40 mg PO DAILY Qty: 10 RF: 0 tramadol 50 mg tablet 50 mg PO Q6H PRN (Reason: pain) Qty: 20 RF: 0 penicillin V potassium 500 mg tablet 500 mg PO TID 10 Days Qty: 30 RF: 0 acetaminophen 500 mg tablet 1,000 mg PO Q6H PRN (Reason: fever or pain) Qty: 30 RF: 0 ibuprofen 600 mg tablet 600 mg PO Q6H PRN (Reason: fever or pain) Qty: 20 RF: 0 oxycodone 5 mg tablet 5 mg PO Q6H PRN (Reason: pain) Qty: 10 RF: 0 amoxicillin-pot clavulanate [Augmentin] 875-125 mg tablet 1 tab PO BID Qty: 20 RF: 0 Referrals: Oxana Wu MD [Physician] - 2 days (Headaches) Stand Alone Forms: Work/School Release
[2021-06-22] MEDS: Ketorolac Tromethamine 30 MG/ML VIAL IVPUSH (19:30)
[2021-06-22] MEDS: diphenhydrAMINE HCL 50 MG/ML VIAL 25 MG IVPUSH (19:30)
[2021-06-22] MEDS: SUMAtriptan succinate 6 MG/0.5 ML VIAL SUBCUT (19:31)
[2021-06-22 19:34] LABS: MANUAL DIFF FLAG NO
[2021-06-22 19:37] LABS: Basophils Absolute Auto 0.1 X10*3/uL (0.0-0.2); Basophils Percent Auto 0.3 % (0-2); Eosinophils Absolute Auto 0.1 X10*3/uL (0.0-0.4); Eosinophils Percent Auto 0.7 % (0-4); Hematocrit 51.9 % (37.0-47.0); Hemoglobin 16.9 g/dl (12.0-16.0); Imm Gran Abs Auto 0.05 X10*3/uL (0.00-0.03); Imm Gran Pct Auto 0.3 % (0.0-0.4); Lymphocytes Absolute Auto 2.1 X10*3/uL (1.2-4.9); Lymphocytes Percent Auto 13.8 % (20-40); Mean Corpuscular HGB Conc 32.6 g/dl (31.0-35.0); Mean Corpuscular Hemoglobin 28.2 pg (27.0-33.0); Mean Corpuscular Volume 86.5 fL (80.0-98.0); Mean Platelet Volume 10.9 fL (9.4-12.3); Monocytes Absolute Auto 0.7 X10*3/uL (0.1-1.2); Monocytes Percent Auto 4.3 % (2-11); Neutrophils Absolute Auto 12.2 x10*3/uL (2.0-8.3); Neutrophils Percent Auto 80.6 % (45-73); Platelet Count 281 X10*3/uL (160-400); Red Cell Distribution Width 13.1 % (11.0-16.0); White Blood Count 15.1 X10*3/uL (4.8-10.8)
[2021-06-22 19:50] LABS: Anion Gap 13 (12-20); Blood Urea Nitrogen 14 mg/dL (9-16); Calcium 10.2 mg/dL (8.4-10.2); Carbon Dioxide 28 mmol/L (22-29); Chloride 104 mmol/L (96-108); Creatinine Clr Calc Pharmacy 100.6; Estimated Glomerular Filt Rate > 60; Glucose Random 87 mg/dL (60-115); Potassium 4.3 mmol/L (3.3-5.1); Sodium 141 mmol/L (135-145)
[2021-06-22 20:14] LABS: Influenza A PCR NEGATIVE (Negative); Influenza B PCR NEGATIVE (Negative); Resp Syncy Virus RNA Qual PCR NEGATIVE (Negative); SARS COV2 PCR INHOUSE NEGATIVE (Negative)
[2021-06-22 20:18] LABS: Erythrocyte Sedimentation Rate 7 MM/HR (0-20)
[2021-06-22 20:35] LABS: Appearance Urine CLEAR; Color Urine STRAW; Glucose Urine UA NEG (NEG); Leukocyte Esterase Urine NEG (NEG); Nitrite Urine NEG (NEG); UACC Culture Trigger NO; Urine Blood 2+ (NEG); Urine Ketones NEG (NEG); Urine Protein NEG (NEG-TRACE)
[2021-06-22 20:37] LABS: UPreg QC Valid YES; Urine Pregnancy NEGATIVE (NEGATIVE)
[2021-06-22 20:56] LABS: Squamous Epithelial Cell Urine TRACE /LPF; WBC Urine 0-2 /HPF (0-4)
[2021-06-22 21:28] VITALS: BP 116/63; PULSE 78; RESP 18; TEMP 36.9; O2SAT 98
[2021-06-22] MEDS: ondansetron HCL 4 MG/2 ML VIAL IVPUSH (23:29)
[2021-06-22] MEDS: oxyCODONE HCl Immed Release 5 MG TABLET PO (23:30)
[2021-06-22] MEDS: Amoxicillin/Potassium Clav 875 MG TABLET PO (23:31)
[2021-06-22] MEDS: metroNIDAZOLE 500 MG TABLET PO (23:31)
[2021-06-22 23:32] VITALS: BP 113/73; PULSE 91; RESP 20; TEMP 37.5; O2SAT 99
== END 2021-06-22 23:35 | disposition home or self-care (01) ==
PROVIDERS: Nurse Practitioner Family; Emergency Provider Internal Medicine; PCP Internal Medicine
DX: J32.9 Chronic sinusitis, unspecified (principal); N76.0 Acute vaginitis; B37.9 Candidiasis, unspecified; R10.9 Unspecified abdominal pain; J06.9 Acute upper respiratory infection, unspecified; R51.9 Headache, unspecified; Z20.822 Contact with and (suspected) exposure to COVID-19; Z79.899 Other long term (current) drug therapy
CPT/HCPCS: 0241U; 36415; 70450; 71045; 74176; 80048; 81001; 81025; 85025; 85652; 96372; 96374; 96375; 99284; 99291; J1200; J1885; J2405; J3030

== ENCOUNTER 2022-01-09 11:02 | Outpatient (REF) | payer MEDICAID, SELFPAY ==
[2022-01-09 13:48] LABS: MANUAL DIFF FLAG NO
[2022-01-09 13:58] LABS: Basophils Absolute Auto 0.1 X10*3/uL (0.0-0.2); Basophils Percent Auto 0.6 % (0-2); Eosinophils Absolute Auto 0.2 X10*3/uL (0.0-0.4); Eosinophils Percent Auto 1.8 % (0-4); Hematocrit 47.7 % (37.0-47.0); Hemoglobin 15.4 g/dl (12.0-16.0); Imm Gran Abs Auto 0.04 X10*3/uL (0.00-0.03); Imm Gran Pct Auto 0.4 % (0.0-0.4); Lymphocytes Absolute Auto 2.1 X10*3/uL (1.2-4.9); Lymphocytes Percent Auto 23.5 % (20-40); Mean Corpuscular HGB Conc 32.3 g/dl (31.0-35.0); Mean Corpuscular Hemoglobin 27.4 pg (27.0-33.0); Mean Corpuscular Volume 84.9 fL (80.0-98.0); Mean Platelet Volume 10.8 fL (9.4-12.3); Monocytes Absolute Auto 0.6 X10*3/uL (0.1-1.2); Monocytes Percent Auto 6.5 % (2-11); Neutrophils Percent Auto 67.2 % (45-73); Platelet Count 272 X10*3/uL (160-400); Red Blood Count 5.62 X10*6/uL (4.20-5.50); Red Cell Distribution Width 13.6 % (11.0-16.0); White Blood Count 8.9 X10*3/uL (4.8-10.8)
[2022-01-09 14:19] LABS: Alanine Aminotransferase 23 U/L (0-31); Albumin Level 4.4 g/dL (3.5-5.0); Alkaline Phosphatase 63 U/L (39-117); Anion Gap 11 (12-20); Aspartate Amino Transferase 18 U/L (5-31); Bilirubin Total 0.6 mg/dL (0.0-1.0); Blood Urea Nitrogen 15 mg/dL (9-16); Calcium 9.4 mg/dL (8.4-10.2); Carbon Dioxide 27 mmol/L (22-29); Chloride 103 mmol/L (96-108); Cholesterol 168 mg/dL; Estimated Glomerular Filt Rate > 60; Glucose Fasting 93 mg/dL (60-99); HDL Cholesterol 41 mg/dL; LDL Cholesterol Calculated 109 mg/dl; Potassium 4.4 mmol/L (3.3-5.1); Sodium 137 mmol/L (135-145); Total Protein 7.4 g/dL (6.5-8.0); Triglycerides 92 mg/dL
[2022-01-11 05:42] LABS: Follicle Stimulating Hormone 3.8 mIU/mL
== END 2022-01-09 11:03 | disposition home or self-care (01) ==
LOC: HO.10HDL 11:02
PROVIDERS: Visit Provider Internal Medicine
DX: Z00.01 Encounter for general adult medical examination with abnormal findings (principal); E28.2 Polycystic ovarian syndrome; F31.5 Bipolar disorder, current episode depressed, severe, with psychotic features; M79.7 Fibromyalgia
CPT/HCPCS: 36415; 80053; 80061; 83001; 84443; 85025

== ENCOUNTER 2022-02-15 20:46 | Emergency (ER) | payer MEDICAID, SELFPAY ==
--- NOTE | ~2022-02-15 | XR_ITS ---
EXAMINATION: XR CHEST CLINICAL INFORMATION: Cough COMPARISON: 06/22/2021 TECHNIQUE: Frontal view of the chest was obtained. FINDINGS: No significant abnormality is noted involving the heart, lungs, mediastinum, bony thorax or soft tissues. XR/XR chest 1V IMPRESSION: Unremarkable examination.
[2022-02-15 20:52] VITALS: BP 150/82; PULSE 78; RESP 18; TEMP 36.7; O2SAT 94; BMI 33.5
--- NOTE | 2022-02-15 21:01 | ED_ITS ---
HPI - URI/Sore Throat General Chief Complaint: Upper Respiratory Symptoms Stated Complaint: flu symptoms. Time Seen by Provider: 02/15/22 21:01 Source: patient Mode of arrival: ambulatory Limitations: no limitations History of Present Illness HPI Narrative: 31-year-old female presents to the ER for evaluation of headache, cough, eye pain, sore throat for the last 6 days. She also reports nasal congestion, sinus pressure and pain along with pain in her ears. She states she now has trouble smelling and tasting things. She took an at home COVID test that was negative. She denies any known sick contacts. No history of seasonal allergies. No chest pain or difficulty breathing. She has a history of asthma and cigarette smoking, has been using her inhaler as needed. MD elicited complaint: cough, sore throat, rhinorrhea, nasal congestion and sinus pain Pertinent past history: asthma Onset (ago): day(s) (6) Consistency: progressively worsening Severity: moderate Description of mucous: yellow Related Data Previous Rx's Medication Instructions Recorded cyclobenzaprine 10 mg tablet 10 mg PO Q8H #20 tabs 09/30/20 prednisone 20 mg tablet 40 mg PO DAILY #10 tabs 09/30/20 tramadol 50 mg tablet 50 mg PO Q6H PRN pain #20 tabs 09/30/20 acetaminophen 500 mg tablet 1,000 mg PO Q6H PRN fever or pain 11/05/20 #30 tabs ibuprofen 600 mg tablet 600 mg PO Q6H PRN fever or pain 11/05/20 #20 tabs oxycodone 5 mg tablet 5 mg PO Q6H PRN pain #10 tabs 11/05/20 penicillin V potassium 500 mg 500 mg PO TID 10 days #30 tabs 11/05/20 tablet amoxicillin 875 mg-potassium 1 tab PO BID #20 tabs 12/08/20 clavulanate 125 mg tablet (Augmentin) amoxicillin 875 mg-potassium 1 tab PO Q12H 7 days #14 tabs 06/22/21 clavulanate 125 mg tablet (Augmentin) fluconazole 150 mg tablet 150 mg PO Q3D 2 doses #2 tabs 06/22/21 (Diflucan) ibuprofen 600 mg tablet 600 mg PO Q6H PRN pain #30 tabs 06/22/21 metronidazole 500 mg tablet 500 mg PO Q12H 7 days #14 tabs 06/22/21 valacyclovir 1 gram tablet 1,000 mg PO Q8H 10 days #30 tabs 06/22/21 (Valtrex) amoxicillin 875 mg-potassium 1 tab PO BID #20 tabs 02/15/22 clavulanate 125 mg tablet fluticasone propionate 50 1 spray intranasal BID #16 grams 02/15/22 mcg/actuation nasal spray,suspension (Flonase Allergy Relief) ibuprofen 600 mg tablet 600 mg PO Q8H PRN pain #10 tabs 02/15/22 Allergies Allergy/AdvReac Type Severity Reaction Status Date / Time No Known Allergies Allergy Verified 02/15/22 20:51 [No Known Allergies*] Review of Systems Review of Systems: Constitutional: No Fever, No Chills ENT/Mouth: + sore throat, + Rhinorrhea, +Sinus pain, +Otalgia, No hearing loss, No Swallowing Difficulty Eyes: + Eye Pain, No Swelling, + Redness Cardiovascular: No Chest Pain, No SOB, No Orthopnea, No Edema Respiratory: +Cough, No Sputum, + Wheezing, No dyspnea Gastrointestinal: No Nausea, No Vomiting, No Diarrhea, No abdominal Pain Genitourinary: No Dysuria, No Urinary Frequency, No Hematuria Musculoskeletal: No joint pain, No Myalgias Skin: No Skin Lesions, No rash Neuro: No Weakness, No Numbness, No Dizziness, +Headache Psych: No Anxiety/Panic, No Depression Heme/Lymph: No Bruising, No Lymphadenopathy PMFSH Past Medical History Medical History Headache Meningitis Social History Social History Advance Directives: No Advance Directives Information Provided: No Physical Exam Vital Signs: Vital Signs: Last Vital Signs Temp 98.1 F 02/15/22 20:52 Pulse 78 02/15/22 20:52 Resp 18 02/15/22 20:52 BP 150/82 H 02/15/22 20:52 Pulse Ox 94 02/15/22 20:52 O2 Del Method 02/15/22 20:52 BMI result Body Mass Index 33.5 Appearance: Alert. Oriented X3. No acute distress. Eyes: Pupils equal, round and reactive to light. Mild scleral injection on the left. No discharge. ENT: Pharynx with moist mucous membranes. Bilateral tonsillar swelling, no exudate. Uvula midline. Normal voice. Nasal turbinates erythematous with clear nasal discharge. Bilateral sinus pressure of the maxillary sinuses. Tympanic membranes with bilateral erythema, no bulging or effusion. Neck: Normal inspection. Neck supple. No lymphadenopathy CVS: Normal heart rate and rhythm. Pulses normal. Respiratory: No respiratory distress. Breath sounds coarse at the bases, no wheezes or rhonchi. Skin: Skin warm and dry. Normal skin color. Normal skin turgor. No rashes. Extremities: Normal inspection x4, normal range of motion. Neuro: Oriented X 3. Grossly normal, nonfocal Course Course Course Narrative: 31-year-old female with history of mild intermittent asthma, active smoker who presents to the ER for evaluation of 6 days headache, sore throat, dry cough, sinus pressure and ear pain. She lost her sense of taste and smell, had a recent COVID test that was negative at home. On arrival to the ER she is hemodynamically stable, afebrile and appears to be in no distress. She has signs and symptoms of URI. Possible sinusitis. Will test for COVID, strep, rule out pneumonia with chest x-ray. Reevaluation(s) Reevaluation #1: COVID and strep were negative. Chest x-ray is clear. Will plan to treat for acute sinusitis with Augmentin and Flonase. Patient stable for discharge home with supportive care and outpatient follow-up. MDM - URI/Sore Throat Lab Data Labs: Lab Results 02/15/22 02/15/22 Range/Units 21:43 21:43 COVID-19 (DARRELL) Negative (Negative) COVID-19 Clin Com See Note S. pyogenes GrpA RAOUL Negative (Negative) Discharge Plan Discharge Clinical Impression: Sinusitis Patient Disposition: Home, Self-Care Instructions: Sinusitis (ED) Additional Instructions: You are negative for COVID-19 and strep throat. Your chest x-ray was clear. Take the prescribed antibiotics as directed, complete the entire course. Use the prescribed nasal spray as directed. Rest and make sure you drinking plenty of fluids. Take [id number] cold and flu medications as needed for your symptoms. If you develop new or worsening symptoms call 911 or come back to the ER for further evaluation. Prescriptions: New amoxicillin-pot clavulanate 875-125 mg tablet 1 tab PO BID Qty: 20 0RF fluticasone propionate [Flonase Allergy Relief] 50 mcg/actuation spray,suspension 1 spray intranasal BID Qty: 16 0RF Rx Instructions: administer into each nostril ibuprofen 600 mg tablet 600 mg PO Q8H PRN (Reason: pain) Qty: 10 0RF No Action cyclobenzaprine 10 mg tablet 10 mg PO Q8H Qty: 20 0RF prednisone 20 mg tablet 40 mg PO DAILY Qty: 10 0RF tramadol 50 mg tablet 50 mg PO Q6H PRN (Reason: pain) Qty: 20 0RF penicillin V potassium 500 mg tablet 500 mg PO TID 10 Days Qty: 30 0RF acetaminophen 500 mg tablet 1,000 mg PO Q6H PRN (Reason: fever or pain) Qty: 30 0RF ibuprofen 600 mg tablet 600 mg PO Q6H PRN (Reason: fever or pain) Qty: 20 0RF oxycodone 5 mg tablet 5 mg PO Q6H PRN (Reason: pain) Qty: 10 0RF Rx Instructions: Narcotic, no driving for 6 hours after taking this medication amoxicillin-pot clavulanate [Augmentin] 875-125 mg tablet 1 tab PO BID Qty: 20 0RF amoxicillin-pot clavulanate [Augmentin] 875-125 mg tablet 1 tab PO Q12H 7 Days Qty: 14 0RF metronidazole 500 mg tablet 500 mg PO Q12H 7 Days Qty: 14 0RF fluconazole [Diflucan] 150 mg tablet 150 mg PO Q3D Qty: 2 0RF Rx Instructions: may repeat second dose 72 hrs after first dose if symptoms persist ibuprofen 600 mg tablet 600 mg PO Q6H PRN (Reason: pain) Qty: 30 0RF valacyclovir [Valtrex] 1 gram tablet 1,000 mg PO Q8H 10 Days Qty: 30 0RF Print Language: [place]
[2022-02-15 22:02] LABS: IDNOW Serial# 08D9AD1C
[2022-02-15 22:03] LABS: Strep A Nucleic Acid Negative (Negative)
[2022-02-15 22:07] LABS: COVID-19 Test Negative (Negative)
[2022-02-15] MEDS: Ibuprofen 600 MG TABLET PO (23:03)
[2022-02-15] MEDS: Amoxicillin/Potassium Clav 875 MG TABLET PO (23:04)
== END 2022-02-15 23:10 | disposition home or self-care (01) ==
PROVIDERS: Emergency Provider Emergency Medicine; PCP Internal Medicine
DX: J32.0 Chronic maxillary sinusitis (principal); Z20.822 Contact with and (suspected) exposure to COVID-19; J02.9 Acute pharyngitis, unspecified; F17.200 Nicotine dependence, unspecified, uncomplicated; J45.20 Mild intermittent asthma, uncomplicated
CPT/HCPCS: 36415; 71045; 87635; 87651; 99283